=== PATIENT | male | born 2000 | race Caucasian/White ===

== ENCOUNTER 2025-03-23 16:51 | Emergency (ER) | payer OTHER ==
[~2025-03-23] VITALS: Ht 182.9 cm; Wt 81.7 kg
[2025-03-23] MEDS ORDERED: Insulin Human Lispro 100 Units/ML 3ML Syringe SC ONE (17:35)
== END 2025-03-23 19:58 | disposition home or self-care (01) ==
LOC: ER 16:51
DX: E10.9 Type 1 diabetes mellitus without complications (principal); Z02.89 Encounter for other administrative examinations; Z59.89 Other problems related to housing and economic circumstances; Z79.4 Long term (current) use of insulin
CPT/HCPCS: 82947; 99281; J1815